=== PATIENT | male | born 1975 | race Caucasian/White ===

== ENCOUNTER 2017-03-25 21:05 | Emergency (ER) | payer SELFPAY ==
[~2017-03-25] VITALS: Ht 177.8 cm; Wt 83.9 kg
--- NOTE | 2017-03-25 21:25 | NUR ---
PT BIB SELF C/O R TESTICULAR PAIN, SHARP IN CHARACTER, SINCE YESTERDAY. DENIES TRAUMA. NO SIGNIFICANT SWELLING. NO DISCHARGE. NO OTHER COMPLAINTS. IN ER BED 09.
--- NOTE | 2017-03-25 22:34 | NUR ---
Patient discharged to home in stable condition. Written and verbal after care instructions given. Patient verbalizes understanding of instruction. AMBULATORY WITH STEADY GAIT.
[2017-03-25 22:44] VITALS: BP 129/76
== END 2017-03-25 22:45 | disposition home or self-care (01) ==
LOC: ER 21:05
DX: N43.3 Hydrocele, unspecified (principal); N43.42 Spermatocele of epididymis, multiple; I72.8 Aneurysm of other specified arteries; Z88.0 Allergy status to penicillin
CPT/HCPCS: 76870-TC; A4606; Z7610

== ENCOUNTER 2017-05-21 19:37 | Emergency (ER) | payer SELFPAY ==
[~2017-05-21] VITALS: Ht 175.3 cm; Wt 81.6 kg
[2017-05-21 19:42] VITALS: BP 119/70
== END 2017-05-21 21:08 | disposition home or self-care (01) ==
LOC: ER 19:38
DX: B86 Scabies (principal); B35.3 Tinea pedis; I72.9 Aneurysm of unspecified site; Z88.0 Allergy status to penicillin
CPT/HCPCS: 99282; A4606; Z7610

== ENCOUNTER 2018-02-20 14:54 | Emergency (ER) | payer SELFPAY ==
[~2018-02-20] VITALS: Ht 180.3 cm; Wt 74.8 kg
[2018-02-20 15:04] VITALS: BP 118/66
[2018-02-20] MEDS ORDERED: IBUPROFEN 200 MG TABLET ONE (15:59)
[2018-02-20] MEDS ORDERED: IBUPROFEN 400 MG TABLET PO ONE (16:00)
== END 2018-02-20 16:43 | disposition home or self-care (01) ==
LOC: ER 14:57
DX: S40.011A Contusion of right shoulder, initial encounter (principal); S80.01XA Contusion of right knee, initial encounter; Z88.0 Allergy status to penicillin; Z86.79 Personal history of other diseases of the circulatory system; W19.XXXA Unspecified fall, initial encounter; Y93.89 Activity, other specified; Y92.89 Other specified places as the place of occurrence of the external cause; Y99.0 Civilian activity done for income or pay
CPT/HCPCS: 73030; 73564; 99284; A4606; Z7610

== ENCOUNTER 2019-09-26 08:32 | Emergency (ER) | payer OTHER ==
[~2019-09-26] VITALS: Ht 180.3 cm; Wt 86.2 kg
--- NOTE | 2019-09-26 08:41 | NUR ---
came in for on and off fever and headache X 3 days. patient aoX4, breathing even and unlabored. to er bed 10, hooked to monitor, awaiting md tran.
--- NOTE | 2019-09-26 08:45 | NUR ---
dr spears at bedside
--- NOTE | 2019-09-26 09:03 | NUR ---
Patient discharged to home with in stable condition. Written and verbal after care instructions given. Patient verbalizes understanding of instruction.
[2019-09-26 09:07] VITALS: BP 120/67
== END 2019-09-26 09:07 | disposition home or self-care (01) ==
LOC: ER 08:32
DX: B34.8 Other viral infections of unspecified site (principal); R51 Headache; R50.9 Fever, unspecified; Z88.0 Allergy status to penicillin